=== PATIENT | female | born 1995 | race African-American/Black ===

== ENCOUNTER 2018-08-10 05:45 | Emergency (ER) | payer OTHER ==
[2018-08-10 05:53] VITALS: BP 103/35
[2018-08-10] MEDS ORDERED: NORMAL SALINE 1000 ML 1,000 ML IV ONE (06:38)
[2018-08-10] MEDS ORDERED: KETOROLAC TROMETHAMINE INJ/PF 30 MG/1 ML SDV IV ONE ×2 (06:38→08:05)
[2018-08-10] MEDS ORDERED: ONDANSETRON HCL INJ/PF 4 MG/2 ML SDV IV ONE (06:38)
--- NOTE | 2018-08-10 06:41 | ER Document Report ---
ED General - General Chief Complaint: Abdominal Pain Stated Complaint: ABDOMINAL PAIN Time Seen by Provider: 08/10/18 06:05 Primary Care Provider: JENNIFER GREGORY FNP-C [Primary Care Provider] - Follow up as needed Notes: 23-year-old female presents to the emergency department sudden onset of lower abdominal pain starting at 5 AM. The patient stated she was doing well last night however at about 5 AM she got up to urinate and had sudden onset of severe lower abdominal pain. She cannot localize right or left. She denies any flank pain. Denies hematuria or dysuria. Denies nausea denies vomiting. Rates the p ain is 10 out of 10 severe in her lower abdomen feels better to curl up in a ball. She states is worse to lay flat or to lay her legs flat. Denies falls denies trauma. Denies vaginal discharge or bleeding denies . Denies chest pain denies shortness of breath. TRAVEL OUTSIDE OF THE [place] IN LAST 30 DAYS: No - Related Data Allergies/Adverse Reactions: No Known Allergies Allergy (Unverified 08/10/18 08:24) Past Medical History - Social History Smoking Status: Unknown if Ever Smoked Family History: None Patient has suicidal ideation: No Patient has homicidal ideation: No Renal/ Medical History: Denies: Hx Peritoneal Dialysis Review of Systems - Review of Systems Constitutional: denies: Chills, Fever Cardiovascular: denies: Chest pain Respiratory: denies: Cough, Short of breath Gastrointestinal: Abdominal pain. denies: Diarrhea, Nausea, Vomiting, Black stools, Rectal bleeding Genitourinary: denies: Dysuria, Flank pain, Hematuria, Urgency Skin: denies: Rash -: Yes All other systems reviewed and negative Physical Exam - Vital signs Vitals: Temp Pulse Resp BP Pulse Ox 98 F 84 18 103/35 L 98 08/10/18 05:51 08/10/18 05:51 08/10/18 05:51 08/10/18 05:51 08/10/18 05:51 - Notes Notes: GENERAL_APPEARANCE: well_nourished, alert, cooperative, peers uncomfortable VITALS: reviewed, see vital signs table. HEAD: no_swelling\tenderness on the head. EYES: PERRL, EOMI, conjunctiva_clear. NOSE: no_nasal_discharge. MOUTH: (-)decreased moisture. THROAT: no_tonsilar_inflammation, no_airway_obstruction. no_lymphadenopathy NECK: supple, no_neck_tenderness, (-)thyromegaly. BACK: no_back_tenderness. CHEST_WALL: no_chest_tenderness. LUNGS: no_wheezing, no_rales, no_rhonchi, (-)accessory muscle use, good air exchange bilateral. HEART: normal_rate, normal_rhythm, normal_S1, normal_S2, (-)S3, (-)S4, no_murmur, no_rub. ABDOMEN: normal_BS, soft, suprapubic_abd_tenderness, (-)guarding, (-)rebound, no_organomegaly, no_abd_masses. PELVIC: Thick white discharge no cervicitis no adnexal masses EXTREMITIES: good pulses in all_extremities, no_swelling\tenderness in the extremities, no_edema. SKIN: warm, dry, good_color, no_rash. MENTAL_STATUS: speech_clear, oriented_X_3, normal_affect, responds_appropriately to questions. Course - Re-evaluation Re-evalutation: 08/10/18 06:41 23-year-old female arrives with sudden onset of lower abdominal pain. Patient has a history of kidney stones. Denies vaginal discharge. Denies bleeding denies . We will get a test urinalysis blood. Will assess if she is . To see if make sure this is not a ruptured ectopic. If is negative we will scan her to assess for kidney stones since this is sudden onset in nature we will give her IV fluids and Toradol. 08/10/18 10:55 CT scan showed some free fluid in the pelvis. Ultrasound shows a complex right ovarian cyst and there is some free fluid in the pelvis is likely due to a ruptured cyst. The patient did state that her periods seem to be a little heavier than normal. She is likely having some hormone dysfunction which is likely the cause of the cyst. There is good flow to the ovary nothing to suggest torsion. The patient will be discharged home on NSAIDs. Follow-up with her [facility] doctor. I spoke with her that if she does not improve in 24-72 hours return to the ER or if worse return to the emergency department. - Vital Signs Vital signs: Temp Pulse Resp BP Pulse Ox 98 F 84 18 103/35 L 98 08/10/18 05:51 08/10/18 05:51 08/10/18 05:51 08/10/18 05:51 08/10/18 05:51 - Laboratory Result Diagrams: 08/10/18 06:04 08/10/18 06:04 Laboratory results interpreted by me: 08/10/18 06:04 Chloride 108 H - Diagnostic Test Radiology reviewed: Reports reviewed Radiology results interpreted by me: 08/10/18 10:55 Abdomen/Pelvis CT 08/10/18 06:37 IMPRESSION: Mild amount of free fluid within the pelvis, which is more dense than simple fluid and may contain some blood products. No large adnexal mass is identified. Given that the patient has a positive beta-hCG, further evaluation with a pelvic ultrasound is recommended to evaluate for an ectopic . TECHNICAL DOCUMENTATION: Quality ID # 436: Final reports with documentation of one or more dose reduction techniques (e.g., Automated exposure control, adjustment of the mA and/or kV according to patient size, use of iterative reconstruction technique) copyright 2011 [employer]- All Rights Reserved Transvaginal US 08/10/18 08:09 IMPRESSION: 1. A complex right ovarian cyst as above, may be hemorrhagic. Please see comment below. 2. Bilateral small to mild complex free fluid in the adnexal regions. These findings may be related to rupture of ovarian cysts/follicles. Correlation suggested. Discharge - Discharge Clinical Impression: Ovarian cyst Qualifiers: Laterality: right Qualified Code(s): N83.201 - Unspecified ovarian cyst, right side Condition: Good Disposition: HOME, SELF-CARE Instructions: Ovarian Cyst ([facility]) Additional Instructions: Please follow-up with your [facility] doctor for further care. If you do not improve in 24-72 hours return to the ER. If worse return as soon as possible Prescriptions: Ibuprofen [Motrin 600 Mg Tablet] 600 mg PO TID #15 tablet Tramadol HCl [Ultram] 50 mg PO Q6H PRN #12 tablet PRN Reason: Pain Scale Of 5 Referrals: JENNIFER GREGORY FNP-C [Primary Care Provider] - Follow up as needed
[2018-08-10 06:45] LABS: ABSOLUTE EOSINOPHILS # (AUTO) 0.3 10^3/uL (0.0-0.6); ABSOLUTE LYMPHOCYTES (AUTO) 3.2 10^3/uL (0.5-4.7); ABSOLUTE MONOCYTES (AUTO) 0.6 10^3/uL (0.1-1.4); ABSOLUTE NEUT (AUTO) 6.2 10^3/uL (1.7-8.2); BASOPHILS % (AUTO) 0.4 % (0-2); EOSINOPHILS % (AUTO) 2.4 % (0-6); HEMATOCRIT 37.1 % (36.0-47.0); HEMOGLOBIN 12.5 g/dL (12.0-15.5); LYMPHOCYTES % (AUTO) 31.1 % (13-45); MEAN CORPUSCULAR HEMOGLOBIN 28.8 pg (27.0-33.4); MEAN CORPUSCULAR HGB CONC 33.7 g/dL (32.0-36.0); MEAN CORPUSCULAR VOLUME 85 fl (80-97); MONOCYTES % (AUTO) 6.1 % (3-13); PLATELET COUNT 360 10^3/uL (150-450); RED BLOOD COUNT 4.35 10^6/uL (3.72-5.28); RED CELL DISTRIBUTION WIDTH 12.8 % (11.5-14.0); TOTAL CELLS COUNTED % (AUTO) 100 %; WHITE BLOOD COUNT 10.3 10^3/uL (4.0-10.5)
[2018-08-10 06:55] LABS: ALANINE AMINOTRANSFERASE 38 U/L (9-52); ALKALINE PHOSPHATASE 88 U/L (38-126); ANION GAP 11 (5-19); ASPARTATE AMINO TRANSFERASE 34 U/L (14-36); BILIRUBIN,DIRECT 0.3 mg/dL (0.0-0.4); BILIRUBIN,TOTAL 0.3 mg/dL (0.2-1.3); BLOOD UREA NITROGEN 9 mg/dL (7-20); CALCIUM 9.1 mg/dL (8.4-10.2); CARBON DIOXIDE 22 mmol/L (22-30); CHLORIDE 108 mmol/L (98-107); GLUCOSE 91 mg/dL (75-110); LIPASE 193.4 U/L (23-300); POTASSIUM 4.4 mmol/L (3.6-5.0); TOTAL PROTEIN 7.4 g/dL (6.3-8.2)
[2018-08-10 07:23] LABS: APPEARANCE,URINE CLEAR; BILIRUBIN,URINE NEGATIVE (NEGATIVE); COLOR,URINE YELLOW; GLUCOSE, URINE NEGATIVE (NEGATIVE); KETONES,URINE NEGATIVE (NEGATIVE); LEUKOCYTE ESTERASE,URINE NEGATIVE (NEGATIVE); NITRITE,URINE NEGATIVE (NEGATIVE); PROTEIN,URINE NEGATIVE (NEGATIVE); UROBILINOGEN,URINE NEGATIVE mg/dL (<2.0)
--- NOTE | 2018-08-10 08:01 | RADIOLOGY REPORT (SQ) ---
EXAM DESCRIPTION: CT ABDOMEN PELVIS WITHOUT IV CONTRAST COMPLETED DATE/TME: 08/10/2018 06:37 CLINICAL HISTORY: 23 years, Female, sudden abd pain COMPARISON: None. TECHNIQUE: Axial CT images of the abdomen and pelvis were obtained without contrast. Sagittal and coronal reformats were performed. DLP 5.7 Images stored on PACS. All CT scanners at this facility use dose modulation, iterative reconstruction, and/or weight based dosing when appropriate to reduce radiation dose to as low as reasonably achievable (ALARA). [facility]: Dose Right [facility]: CareDose [facility]: Dose Right [facility]: Teradose 4D [facility]: [employer] LIMITATIONS: None. FINDINGS: The lung bases are clear. The liver, gallbladder, pancreas, spleen, and adrenal glands are unremarkable. Both kidneys appear unremarkable. There is no evidence of urolithiasis or hydronephrosis. There is a mild amount of fluid within the pelvis which is more dense than simple fluid, measuring approximately 25 Hounsfield units. There is no free air. The abdominal aorta is normal in caliber. There is no lymphadenopathy. The stomach, small bowel, appendix, and colon appear unremarkable. The uterus appears grossly unremarkable. No large adnexal masses detected. 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 IMPRESSION: Mild amount of free fluid within the pelvis, which is more dense than simple fluid and may contain some blood products. No large adnexal mass is identified. Given that the patient has a positive beta-hCG, further evaluation with a pelvic ultrasound is recommended to evaluate for an ectopic . TECHNICAL DOCUMENTATION: Quality ID # 436: Final reports with documentation of one or more dose reduction techniques (e.g., Automated exposure control, adjustment of the mA and/or kV according to patient size, use of iterative reconstruction technique) copyright 2010 [employer]- All Rights Reserved
[2018-08-10 08:59] LABS: BACTERIA (WET MOUNT) 4+ BACTERIA SEEN; EPITHELIALS (WET MOUNT) 3+ EPITHELIALS SEEN; RBCS (WET MOUNT) NO RBCS SEEN; T.VAGINALIS (WET MOUNT) NO TRICHOMONAS SEEN; WBCS (WET MOUNT) 2+ WBCS SEEN; YEAST (WET MOUNT) NO YEAST SEEN
--- NOTE | 2018-08-10 09:40 | RADIOLOGY REPORT (SQ) ---
EXAM DESCRIPTION: U/S NON OB PEL TV W/DOPPLER COMPLETED DATE/TIME: 08/10/2018 9:25 am REASON FOR STUDY: pain COMPARISON: None. TECHNIQUE: Dynamic and static grayscale images acquired of the pelvis via transvaginal approach and recorded on PACS. Additional selected color Doppler and spectral images recorded. LIMITATIONS: None. FINDINGS: UTERUS: Contour normal. No mass. ENDOMETRIAL STRIPE: No focal or generalized thickening. No masses. CERVIX: No nabothian cysts. RIGHT OVARY AND DOPPLER: Normal size. A 3.1 x 3.2 x 2.5 cm cm complex cyst, may be hemorrhagic. No rmal arterial vascular flow without evidence for torsion. LEFT OVARY AND DOPPLER: Normal size. No worrisome masses. Normal arterial vascular flow without evide nce for torsion. FREE FLUID: Small to mild complex free fluid in the bilateral adnexal regions. These findings may be related to rupture of ovarian cysts/follicles. OTHER: No other significant finding. MEASUREMENTS: UTERUS: 7.5 x 5.2 x 3.7 cm ENDOMETRIAL STRIPE: 9.2 mm RIGHT OVARY: 2.4 x 1.8 x 2.5 cm LEFT OVARY: 4.2 x 2.9 x 3.3 cm IMPRESSION: 1. A complex right ovarian cyst as above, may be hemorrhagic. Please see comment below . 2. Bilateral small to mild complex free fluid in the adnexal regions. These findings may be related to rupture of ovarian cysts/follicles. Correlation suggested. COMMENT: Followup of asymptomatic benign ovarian cysts detected by ultrasound in PREMENOPAUSAL corina ents Simple cyst: *? 5 cm: no followup *> 5 and ? 7 cm: yearly followup ultrasound *> 7 cm: further imaging (MRI) or surgical followup Hemorrhagic cyst *? 5 cm: no followup *> 5 cm: 6-12 week followup ultrasound to ensure resolution Endometrioma *Initial followup ultrasound 6-12 weeks, then yearly if not surgically removed Dermoid *Yearly followup ultrasound if not surgically removed Note: If cyst is clinically symptomatic or otherwise concerning, other followup may be warranted. Based on recommendations of the Society for Radiologists in Ultrasound Consensus Conference Statement 2010 on management of asymptomatic ovarian and other adnexal cysts imaged at ultrasound. TECHNICAL DOCUMENTATION: JOB ID: [id number] [employer]- All Rights Reserved Rev-11/07 Reading location - IP/workstation name: [email or web address]
[2018-08-10] MEDS ORDERED: TRAMADOL HCL 50 MG TABLET PO ONE (11:00)
== END 2018-08-10 11:31 | disposition home or self-care (01) ==
LOC: ER 05:45
DX: N83.201 Unspecified ovarian cyst, right side (principal); R18.8 Other ascites; R10.30 Lower abdominal pain, unspecified; Z87.442 Personal history of urinary calculi
CPT/HCPCS: 96376; 99284; 96361; 96374; 96375; 36415; 87210; 84702; 83690; 85025; 81025; 80053; 81001; 76830; 93976; 74176; J1885; J2405; J7030